=== PATIENT | female | born 1995 ===

== ENCOUNTER → 2025-08-01 10:15 | Outpatient (BNV) | payer OTHER, SELFPAY | PROVIDERS: PCP Nurse Practitioner; Visit Provider Internal Medicine Cardiovascular Disease | DX: R00.2 Palpitations (principal) | CPT/HCPCS: 93248 ==

== ENCOUNTER → 2025-08-01 10:15 | Outpatient (REF) | payer OTHER, SELFPAY | LOC: HO.CARD 10:15 | PROVIDERS: PCP Nurse Practitioner; Visit Provider Nurse Practitioner | DX: R00.2 Palpitations (principal) | CPT/HCPCS: 93246 ==